=== PATIENT | male | born 1935 | race African-American/Black ===

== ENCOUNTER 2016-02-21 10:23 | Emergency (ER) | payer MEDICAID ==
[~2016-02-21] VITALS: Ht 180.3 cm; Wt 95.3 kg
[2016-02-21] MEDS ORDERED: DuoNeb 0.5-3(2.5)mg/3ml neb HHN ONE (11:15)
[2016-02-21 11:46] VITALS: BP 147/73
--- NOTE | 2016-02-21 12:02 | Diagnostic Imaging Report ---
Indication: Dyspnea Comparison: None A single view chest radiograph was obtained. Findings: No definite infiltrate or pulmonary vascular congestion identified. The heart is borderline enlarged. The aorta is mildly enlarged consistent with atherosclerotic vascular disease. The bones are osteopenic. Impression: No acute disease
[2016-02-21] MEDS ORDERED: ALBUTEROL SULF8.5 GM INH (12:24)
[2016-02-21] MEDS ORDERED: IBUPROFEN600 MG ORAL (12:32)
[2016-02-21] MEDS ORDERED: IBUPROFEN400 MG ORAL (12:39)
[2016-02-21 12:44] VITALS: BP 139/72
[2016-02-21 12:45] VITALS: BP 139/72
--- NOTE | 2016-02-21 12:58 | Emergency Room Report ---
History of Present Illness General Chief Complaint: Upper Respiratory Illness Source: Patient Present Illness HPI Patient is a 80-year-old male presented after having gradual onset of right knee pain and increased cough. Patient denied any fever. He denied sputum production. Patient is a former smoker. He denies any chest pain. He denies prior history of diabetes. He denied any leg swelling. The patient had increased pain to his knee with movement. The patient had been having pain for many years. He denied any numbness or weakness to his extremities. He denied recent trauma. Allergies: Coded Allergies: No Known Allergies (Unverified , 02/21/16) Patient History Past Medical History: see triage record Reviewed Nursing Documentation: PMH: Agreed, PSxH: Agreed Nursing Documentation-PMH Past Medical History: No History, Except For Hx Seizures: Yes - epilepsy Review of Systems All Other Systems: negative except mentioned in HPI Physical Exam Vital Signs Date Time Temp Pulse Resp B/P Pulse Ox O2 Delivery O2 Flow Rate FiO2 02/21/16 10:34 97.5 77 16 159/73 95 Room Air Sp02 EP Interpretation: reviewed, normal General Appearance: normal inspection, well appearing, no apparent distress, alert, GCS 15 Head: atraumatic ENT: normal ENT inspection, hearing grossly normal, normal voice Neck: normal inspection, full range of motion, supple, no bony tend Respiratory: normal inspection, lungs clear, normal breath sounds, no respiratory distress, no retraction, no wheezing Cardiovascular #1: regular rate, rhythm, no edema Gastrointestinal: normal inspection, normal bowel sounds, non tender, soft, no guarding, no hernia Genitourinary: no CVA tenderness Musculoskeletal: normal inspection, back normal, normal range of motion Neurologic: normal inspection, alert, oriented x3, responsive, 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 Differential diagnosis included but was not limited to bronchitis, pneumonia, pulmonary embolism, pericarditis, asthma, foreign body. Chest Xray interpreted by radiology 1 view showed no evident infiltrate, normal mediastinum, and normal cardiac size. The patient was given a breathing treatment due to wheezing with improvement. X-ray imaging of the right knee 4 view show degenerative changes without evident fracture. The patient was given prescription for albuterol inhaler.The patient is advised to follow up with primary care doctor in 1-2 days. Patient is advised to return if any worsening condition or if any changes in status that are concerning. Chest X-Ray Diagnostic Results EP Interpretation: No Findings: no consolidation, no effusion, no pneumothorax, no acute cardiopulmonary disease Number of Views: 1 Last Vital Signs Date Time Temp Pulse Resp B/P Pulse Ox O2 Delivery O2 Flow Rate FiO2 02/21/16 12:45 97.5 69 18 139/72 100 Room Air Status: improved Disposition: HOME, SELF-CARE Condition: Stable Scripts Ibuprofen* (MOTRIN*) 400 Mg Tablet 400 MG ORAL Q8H, #30 TAB 0 Refills Prov: Ignacio Daily 02/21/16 Albuterol Sulfate* (ALBUTEROL SULFATE MDI*) 8.5 Gm Hfa.aer.ad 2 PUFF INH Q6H, #1 INH 0 Refills Prov: Ignacio Daily 02/21/16 Patient Instructions: Upper Respiratory Infection, Adult Ignacio Daily Feb 21, 2016 12:58
--- NOTE | 2016-02-22 11:44 | Diagnostic Imaging Report ---
Indication: Dyspnea 3 views of the right knee were obtained. Findings: No acute fracture, malalignment, or joint effusion are identified. Joint space is mildly narrowed. Bone mineralization is within normal limits for age. Impression: No acute injury.
== END 2016-02-21 12:46 | disposition home or self-care (01) ==
LOC: EMR 11:41
DX: J06.9 Acute upper respiratory infection, unspecified (principal); M19.90 Unspecified osteoarthritis, unspecified site; G40.909 Epilepsy, unspecified, not intractable, without status epilepticus
CPT/HCPCS: 71010; 94640; 94664; 99284